=== PATIENT | male | born 1970 | race American Indian/Alaskan Native ===

== ENCOUNTER 2018-04-22 16:57 | Emergency (ER) | payer SELFPAY ==
[2018-04-22 17:05] VITALS: BP 190/97
[2018-04-22] MEDS ORDERED: DELTASONE PO ONE (17:29)
[2018-04-22] MEDS ORDERED: PERCOCET 5/325 PO ONE (17:29)
--- NOTE | 2018-04-22 17:33 | Emergency Department Report ---
ED Lower Extremity HPI - General Chief Complaint: Pain General Stated Complaint: GOUT PAIN Time Seen by Provider: 04/22/18 17:22 Source: patient Mode of arrival: Ambulatory Limitations: No Limitations - History of Present Illness Initial Comments: Mr. Dey is a pleasant 48-year-old male history of hypertension, congestive heart failure and gout. He has a gout flare. He was diagnosed with gout in his hometown of [facility]. He is visiting his children here in [place]. He did admit that he has run out of his high blood pressure medicine. He does not take the medication consistent because it makes him sleepy. Patient has severe foot pain in both big toes. no injury. No fever. worse with ambulation Patient arrive via EMS. MD Complaint: other (foot pain) -: Gradual, days(s) (several days) Injury: Foot: Right, Left Severity: severe - Related Data Previous Rx's Medication Instructions Recorded Last Taken Type Colchicine 2 tab PO Q1H #4 capsule 04/22/18 Unknown Rx Ibuprofen 800 mg PO QID 5 Days #20 tablet 04/22/18 Unknown Rx Allergies Allergy/AdvReac Type Severity Reaction Status Date / Time No Known Allergies Allergy Verified 04/22/18 17:00 ED Review of Systems ROS: Stated complaint: GOUT PAIN Other details as noted in HPI Comment: All other systems reviewed and negative Constitutional: no symptoms reported. denies: fever, malaise Respiratory: denies: cough Cardiovascular: denies: chest pain ED Past Medical Hx - Past Medical History Previous Medical History?: Yes Hx Hypertension: Yes Additional medical history: gout, pacer - Surgical History Past Surgical History?: Yes Additional Surgical History: pace maker - Social History Smoking Status: Never Smoker Substance Use Type: Alcohol - Medications Home Medications: Home Medications Medication Instructions Recorded Confirmed Last Taken Type Colchicine 2 tab PO Q1H #4 capsule 04/22/18 Unknown Rx Ibuprofen 800 mg PO QID 5 Days #20 tablet 04/22/18 Unknown Rx ED Physical Exam - General Limitations: No Limitations General appearance: alert, in no apparent distress - Head Head exam: Present: atraumatic, normocephalic - Eye Eye exam: Present: normal appearance - ENT ENT exam: Present: mucous membranes moist - Neck Neck exam: Present: normal inspection. Absent: tenderness, meningismus - Respiratory Respiratory exam: Present: normal lung sounds bilaterally. Absent: respiratory distress, wheezes, rales, rhonchi - Cardiovascular Cardiovascular Exam: Present: regular rate, normal rhythm, normal heart sounds. Absent: bradycardia, tachycardia, systolic murmur, diastolic murmur, rubs, gallop - GI/Abdominal GI/Abdominal exam: Present: soft, normal bowel sounds. Absent: distended, tenderness, guarding - Rectal Rectal exam: Present: deferred - Extremities Exam Extremities exam: Present: other (mildly edematous tender right large toe, no notable edema on left foot) - Back Exam Back exam: Present: normal inspection - Neurological Exam Neurological exam: Present: alert, oriented X3 - Psychiatric Psychiatric exam: Present: normal affect, normal mood - Skin Skin exam: Present: warm, dry, intact, normal color. Absent: rash ED Course Vital Signs 04/22/18 17:00 Temperature 99.2 F Pulse Rate 82 Respiratory 16 Rate Blood Pressure 190/97 O2 Sat by Pulse 87 Oximetry ED Lower Extremity MDM - EKG Data EKG shows normal: sinus rhythm, axis, intervals Rate: normal - EKG Data 04/22/18 17:35 rate 80 bpm nl axis nl intervals biphasic t waves no ST elevation +LVH - Medical Decision Making Gout flare, no hx of injury, do not suspect cellulitis, intact DP pulse bilaterally, I reviewed patient medications. He brought pill bottles to ED. He has severe HTN requiring multiple medications. Two pill bottles were empty. I will provide refill of chlorthalidone and hydralazine. No evidence of end organ damage. Strongly encouraged compliance with medication. I also noticed a bottle with approximately 15 pills of hydrocodone/APAP. I explained that this medication should be sufficient for pain control. Rx: colchicine, ibuprofen, Critical care attestation.: If time is entered above; I have spent that time in minutes in the direct care of this critically ill patient, excluding procedure time. ED Disposition Clinical Impression: Gout attack, Pain in both feet, Hypertensive urgency Disposition: [id number] TO HOME OR SELFCARE Is pt being admited?: No Does the pt Need Aspirin: No Condition: Stable Instructions: Hypertension (ED), Acute Gouty Arthritis (ED) Prescriptions: Colchicine 2 tab PO Q1H #4 capsule Ibuprofen 800 mg PO QID 5 Days #20 tablet
== END 2018-04-22 18:10 | disposition home or self-care (01) ==
LOC: ED 16:57
DX: M10.9 Gout, unspecified (principal); I16.0 Hypertensive urgency; Z95.818 Presence of other cardiac implants and grafts
CPT/HCPCS: 93005; 93010; 99282; J7512